=== PATIENT | male | born 1970 | race Asian ===

== ENCOUNTER 2021-04-17 10:19 | Day surgery (SDC) | payer OTHER, SELFPAY ==
[2021-04-17 10:44] VITALS: BMI 25.6
[2021-04-17] MEDS: Lactated Ringers 1,000 ML 100 ML IVCONT (11:13)
--- NOTE | 2021-04-17 11:17 | P.CONAN_ITS ---
HPI - Anesthesia Eval Consult details Narrative: 50 yo male patient for EGD, Colonoscopy [facility] Past Medical History Medical History (Updated 04/17/21 @ 10:37 by Trisha Lopes RN) GERD (gastroesophageal reflux disease) Patient denies significant medical history Family History Family history of problems with anesthesia: No Surgical History History of Problems with Anesthesia: No Social History Social History Patient Tobacco Use Status: Never used Tobacco Use of substances other than those prescribed or required for medical reasons: No Are you DNR?: No Advance Directives: No Advance Directives Information Provided: Yes Recently lost weight without trying: No How much weight loss: 2-13 pounds Eating poorly because of decreased appetite: No Nutrition screen score: 1 Nutrition Risks: No Nutritional Risk Poor oral hygiene: No Meds Allergies Allergy/AdvReac Type Severity Reaction Status Date / Time No Known Allergies Allergy Verified 04/16/21 15:45 Exam Exam Date and Time: April 17, 2021 1117 Height,Weight and Vital Signs: Height 5 ft 6 in Weight 72 kg Vital Signs Temp Pulse Resp BP Pulse Ox 04/17/21 11:30 97.6 F 69 16 99/66 96 Airway Mallampati Class: II TM Dist: >3cm Neck ROM: Full Loose/Missing/Broken Teeth: Yes (1 missing) Heart: RRR Lungs: CTAB Assessment and Plan Assessment Anesthesia Assessment: Anesthesia Plan Discussed and Chart Reviewed Final Anesthetic Review Family History of Problems with Anesthesia: No History of Problems with Anesthesia: No NPO: Yes ASA Class: II Final Preanesthetic Review: No Changes in Pt Med Stat, Meds/Allgs Chart Reviewed, Consent Obtained/Reviewed and Anes Risks/Benef Reviewed Patient Risk: Low Procedure Risk: Low Assessment/Block/Sedation in SS: Assess/Block/Sedation-SS Anesthetic Plan Anesthetic Plan: MAC: Disposition: Standard PACU
[2021-04-17 11:30] VITALS: BP 99/66; PULSE 69; RESP 16; TEMP 36.4; O2SAT 96
--- NOTE | 2021-04-17 11:46 | MHC.SHP ---
Pre-Procedural Eval Section A Date of Service: 04/17/21 The patient is an INPATIENT: No Changes since office visit: No Cold of Flu in the past 2 weeks, No New Medical Problems, No Changes in Medication and No Patient answered all questions The History & Physical has been completed within 30 days and I have reviewed it.: Yes Section B Chief Complaint: reflux,screening Allergies: Allergies Allergy/AdvReac Type Severity Reaction Status Date / Time No Known Allergies Allergy Verified 04/16/21 15:45 Plan I have reviewed the history and physical and performed a pertinent physical examination on my patient. No changes have occurred unless specified.
[2021-04-17 12:34] VITALS: BP 90/60; PULSE 76; RESP 16; TEMP 36.3; O2SAT 98
--- NOTE | 2021-04-17 12:35 | PM.OP ---
Brief Operative Note Date of Service: 04/17/21 Pre-op diagnosis: gerd, screening Post-op diagnosis: same (colono polyps) Procedure: egd,colonoscopy Surgeon: Ramon Mauricio Anesthesia: MAC Was an Manager Professional Development used for this Procedure?: No Estimated blood loss (mL): 2 Pathology: other (see nurses notes) Condition: stable Disposition: PACU
[2021-04-17 12:49] VITALS: BP 106/71; PULSE 72; RESP 17; TEMP 36.3; O2SAT 98
--- NOTE | 2021-04-17 13:07 | OP_ITS ---
SURGEON: Ramon Mauricio MD INDICATIONS: Gastroesophageal reflux disease and colon cancer screening. PREOPERATIVE DIAGNOSIS: POSTOPERATIVE DIAGNOSIS: PROCEDURE PERFORMED: ESTIMATED BLOOD LOSS: COMPLICATIONS: ANESTHESIA: ASSISTANTS: SPECIMENS: PROCEDURES PERFORMED: 1. Upper endoscopy with biopsy. 2. Colonoscopy to the terminal ileum with snare polypectomy. MEDICATIONS: Monitored anesthesia care. DESCRIPTION OF PROCEDURE: History and physical performed. The risks and benefits of the procedure were explained to the patient. Informed consent was obtained. The patient was placed in the left lateral decubitus position. The Olympus video gastroscope was introduced into the esophagus, stomach, and duodenum. Examination was performed and the scope was removed. He was repositioned for colonoscopy. A digital rectal exam was performed and was found to be normal. The Olympus pediatric video colonoscope was introduced into the rectum and advanced to the cecum without difficulty. The cecum was identified by transillumination, palpation, and identification of ileocecal valve. Examination was performed and the scope was removed. He tolerated both procedures well and was taken to recovery area in stable condition. FINDINGS: UPPER ENDOSCOPY: Esophagus: The esophagus was normal. There was no esophagitis. Biopsies were obtained from the EG junction. Stomach: The stomach showed no evidence of masses, ulcers, or polyps. Antral biopsies were obtained to evaluate for H pylori. Duodenum: The bulb and second portion were normal. COLONOSCOPY: The terminal ileum was examined for approximately 30 cm and appeared normal. The visualized colonic mucosa was within normal limits without evidence of masses or ulcers. The quality of the prep was good. Two polyps were identified and removed with a snare, both were less than 10 mm. One was located at 50 cm and one was located at 40 cm. No other polyps were identified. Retroflexed examination showed moderate-sized internal hemorrhoids. IMPRESSION: 1. Gastroesophageal reflux disease. 2. Colon polyps. RECOMMENDATION: Follow up the biopsy results. MD BARBER Colmenares/TEOFILO / [id number]
== END 2021-04-17 13:32 | disposition home or self-care (01) ==
PROVIDERS: PCP Internal Medicine; Visit Provider Internal Medicine Gastroenterology
PROC: (CPT 45385; principal; 2021-04-17 11:20)
DX: Z12.11 Encounter for screening for malignant neoplasm of colon (principal); D12.6 Benign neoplasm of colon, unspecified; K21.9 Gastro-esophageal reflux disease without esophagitis
CPT/HCPCS: 45385; 43239; 88305; 88342

== ENCOUNTER → 2022-12-01 13:33 | Outpatient (BNVA) | payer OTHER, SELFPAY | PROVIDERS: PCP Internal Medicine; Referring Provider Psychiatry & Neurology Neurology; Visit Provider Surgery | DX: Z13.89 Encounter for screening for other disorder (principal) ==

== ENCOUNTER → 2022-12-13 09:46 | Outpatient (BNVA) | payer OTHER, SELFPAY | PROVIDERS: PCP Internal Medicine; Visit Provider Nurse Practitioner Family | DX: N40.1 Benign prostatic hyperplasia with lower urinary tract symptoms (principal) | CPT/HCPCS: 51798 ==

== ENCOUNTER 2022-12-31 08:12 | Day surgery (SDC) | payer OTHER, SELFPAY ==
[2022-12-29 13:29] VITALS: BMI 26.6
--- NOTE | 2022-12-30 09:00 | HO.ANESPROP2 ---
Documented by User: Fransisca Villa NP 12/30/22 09:01 HPI - Anesthesia Eval Consult details Narrative: 52yo M for Left Excision Lipoma Multiple Upper Extremities PMFSH Active Problems Active Problems: All Active Problems (Updated 12/29/22 @ 13:28 by Rosanna Brito RN) Lipoma of arm (Acute) BPH loc w urin obs/LUTS (Acute) Past Medical History Medical History GERD (gastroesophageal reflux disease) Family History Family history of problems with anesthesia: No Surgical History Surgical History H/O colonoscopy History of esophagogastroduodenoscopy (EGD) History of Problems with Anesthesia: No Social History Social History Alcohol intake: never Patient Tobacco Use Status: Never used Tobacco Are you DNR?: No Advance Directives: No Advance Directives Information Provided: Yes Nutrition Risks: No Nutritional Risk Meds Allergies Allergy/AdvReac Type Severity Reaction Status Date / Time No Known Allergies Allergy Verified 12/31/22 08:39 Home Medications Medication Instructions Recorded Confirmed Last Taken Type multivitamin 1 tab PO DAILY 12/01/22 12/31/22 12/30/22 History gabapentin 300 mg capsule mg PO 12/09/22 12/30/22 History tamsulosin 0.4 mg capsule 0.4 mg PO DAILY 12/09/22 12/31/22 12/30/22 History omeprazole 20 mg capsule,delayed 20 mg PO DAILY PRN Heartburn 12/13/22 12/31/22 12/30/22 History release Exam Exam Date and Time: December 30, 2022 0900 Height,Weight and Vital Signs: Height 5 ft 6 in Weight 74.843 kg Assessment and Plan Assessment Anesthesia Assessment: Chart Reviewed Final Anesthetic Review Family History of Problems with Anesthesia: No History of Problems with Anesthesia: No Documented by User: Connie Montoya MD 12/31/22 10:14 [facility] Active Problems Active Problems: All Active Problems (Updated 12/29/22 @ 13:28 by Rosanna Brito, NATALY) Lipoma of arm (Acute) BPH loc w urin obs/LUTS (Acute) neurofibromatosis Past Medical History Medical History GERD (gastroesophageal reflux disease) Surgical History Surgical History H/O colonoscopy History of esophagogastroduodenoscopy (EGD) Social History Social History Alcohol intake: never Patient Tobacco Use Status: Never used Tobacco Are you DNR?: No Advance Directives: No Advance Directives Information Provided: Yes Nutrition Risks: No Nutritional Risk Meds Allergies Allergy/AdvReac Type Severity Reaction Status Date / Time No Known Allergies Allergy Verified 12/31/22 08:39 Home Medications Medication Instructions Recorded Confirmed Last Taken Type multivitamin 1 tab PO DAILY 12/01/22 12/31/22 12/30/22 History gabapentin 300 mg capsule mg PO 12/09/22 12/30/22 History tamsulosin 0.4 mg capsule 0.4 mg PO DAILY 12/09/22 12/31/22 12/30/22 History omeprazole 20 mg capsule,delayed 20 mg PO DAILY PRN Heartburn 12/13/22 12/31/22 12/30/22 History release Exam Airway Mallampati Class: III (small mouth opening ) TM Dist: >3cm Neck ROM: Full Loose/Missing/Broken Teeth: No Heart: RRR Lungs: CTA Assessment and Plan Assessment Anesthesia Assessment: Anesthesia Plan Discussed Final Anesthetic Review NPO: Yes ASA Class: II Final Preanesthetic Review: Meds/Allgs Chart Reviewed, Consent Obtained/Reviewed and Anes Risks/Benef Reviewed Patient Risk: Low Procedure Risk: Low Anesthetic Plan Anesthetic Plan: GA Disposition: Standard PACU
--- NOTE | 2022-12-30 14:25 | MHC.SHP ---
Pre-Procedural Eval Section A Date of Service: 12/30/22 The patient is an INPATIENT: No Changes since office visit: No Cold of Flu in the past 2 weeks, No New Medical Problems, No Changes in Medication and No Patient answered all questions The History & Physical has been completed within 30 days and I have reviewed it.: Yes Section B Chief Complaint: Benign lipomatous neoplasm of skin and subcutaneou Allergies: Allergies Allergy/AdvReac Type Severity Reaction Status Date / Time No Known Allergies Allergy Verified 12/13/22 10:18 Plan I have reviewed the history and physical and performed a pertinent physical examination on my patient. No changes have occurred unless specified. Time Spent With Patient Time: Total time managing care of this patient today ____ minutes.
[2022-12-31] MEDS: Lactated Ringers 1,000 ML 100 ML IVCONT (09:19)
[2022-12-31 09:28] VITALS: BP 111/71; PULSE 72; RESP 18; TEMP 36.6; O2SAT 98
[2022-12-31 12:28] VITALS: BP 107/63; PULSE 75; RESP 16; TEMP 36.2; O2SAT 98
[2022-12-31 12:33] VITALS: BP 104/56; PULSE 72; RESP 14; O2SAT 100
[2022-12-31 12:38] VITALS: BP 106/63; PULSE 88; RESP 16; O2SAT 98
--- NOTE | 2022-12-31 12:42 | W.PM.OPN ---
Operative Note Operative Note Date of Service: 12/31/22 Narrative: Preoperative diagnosis: [] Multiple lipomas left upper extremity Postop diagnosis: [] Same Procedure [] excision multiple lipomas left upper extremity, 15 total Surgeon: [] Javier Software Development Leader: [] Type of Anesthesia: [] General Indication for surgery: [] Patient 15 lipomas with the following dimensions excised; all dimensions are in cm; 1. 3 x 2, 2. 2 x 2 , 3. 3 x 2, 4. 2 x 2 cm , 5. 3 x 2, 6. 1 x 2, 7. 3 x 2, 8. 4 x 3, 9. 2 x 3, 10. 3 x 2, 11. 3 x 3, 12. 4 x 2, 13. 3 x 2, 14. 1 x 1, 15. 2 x 1 Findings: [] Patient brought to operating room, placed on operative table supine position, after adequate level of general anesthesia was induced, the left upper extremity was circumferentially prepped and draped in usual fashion. Over premarked areas of the multiple lipomas, sequentially a longitudinal incision was made over each with uneventfully enucleation of the multiple lipomas with number and size as mentioned above. Specimens were sent to pathology. Each wound was irrigated, secured hemostasis, and closed using interrupted inverted dermal 3-0 Vicryl sutures followed by Steri-Strips and sterile dressings, and a Marah wrap. Each wound was infiltrated 0.5% Marcaine at completion. Sponge, needle, and instrument counts reported correct. Patient tolerated the procedure well and emerged anesthesia stable condition. EBL minimal
[2022-12-31 12:43] VITALS: BP 108/75; PULSE 75; RESP 16; O2SAT 97
[2022-12-31 12:58] VITALS: BP 109/76; PULSE 76; RESP 16; TEMP 36.4; O2SAT 97
[2022-12-31] MEDS: Acetaminophen 325 MG TABLET 650 MG PO (13:00)
[2022-12-31] MEDS: oxyCODONE HCl Immed Release 5 MG TABLET PO (13:03)
== END 2022-12-31 13:40 | disposition home or self-care (01) ==
PROVIDERS: PCP Internal Medicine; Visit Provider Surgery
PROC: (CPT 11401; principal; 2022-12-31 09:30)
DX: D17.22 Benign lipomatous neoplasm of skin and subcutaneous tissue of left arm (principal)
CPT/HCPCS: 11401 ×2; 11402 ×4; 11403 ×7; 11404 ×2; 88304; J0690; J1100; J2250; J2405; J2795; J3010

== ENCOUNTER → 2023-01-07 11:49 | Outpatient (BNVA) | payer OTHER, SELFPAY | PROVIDERS: PCP Internal Medicine; Visit Provider Surgery ==

== ENCOUNTER 2023-02-21 10:01 | Outpatient (REF) | payer OTHER, SELFPAY | END 2023-02-21 10:02 | disposition home or self-care (01) | LOC: HO.US 10:01 | PROVIDERS: PCP Internal Medicine; Visit Provider Nurse Practitioner Family | DX: N40.1 Benign prostatic hyperplasia with lower urinary tract symptoms (principal) | CPT/HCPCS: 76770 ==

== ENCOUNTER 2023-05-16 11:18 | Outpatient (REF) | payer OTHER, SELFPAY ==
[2023-05-16 13:52] LABS: Prostate Specific Antigen 1.29 ng/mL (<0.05-4.0)
== END 2023-05-16 11:19 | disposition home or self-care (01) ==
LOC: HO.10HDL 11:18
PROVIDERS: Visit Provider Nurse Practitioner Family
DX: Z12.5 Encounter for screening for malignant neoplasm of prostate (principal); N40.1 Benign prostatic hyperplasia with lower urinary tract symptoms
CPT/HCPCS: 36415; 84153

== ENCOUNTER 2023-05-18 13:51 | Outpatient (AMB) | payer OTHER, SELFPAY ==
--- NOTE | 2023-05-18 14:04 | A.OFFVIS_ITS ---
Intake Intake Visit Reasons: follow up/US(set) Intake Note: Patient presents today for follow up ultrasound/lab/BPH (imaging 02/21/23) Urology Medications: tamsulosin Blood Thinner: none PVR: 0ml's Electronics Hardware Design Engineer Required: Yes Accompanied by: Daughter Allergies No Known Allergies Allergy (Verified 05/18/23 14:42) Medication List - Last Reconciled 05/18/23 by CRICKET Herron- docusate sodium (Colace) 100 mg PO BID PRN gabapentin mg PO multivitamin 1 tab PO DAILY omeprazole 20 mg PO DAILY PRN oxycodone 5 mg PO Q4H PRN tamsulosin 0.4 mg PO DAILY HPI HPI Comments History of Present Illness Details Ca is a very pleasant 52-year-old male patient of Dr. Powell who was accompanied by his daughter at today's visit. He has a past medical history of GERD. He presents to the office today for a follow up. Of note, patient was seen approximately 4 months ago as a new patient for urinary issues at which time a retroperitoneal ultrasound and PSA were ordered for further assessment evaluation. PSA 05/14--1.3. Right kidney with no calculi or hydronephrosis. Simple exophytic 1.6 x 1.6 x 1.6 cm lateral cysts in the mid kidney. No follow-up imaging of this finding is recommended per the radiology report. Left kidney with no calculi, lesions, and or hydronephrosis. The bladder is well distended and normal. Bilateral ureteral jets are demonstrated. Pre void bladder volume is approximately 380 mL. Postvoid bladder volume is approximately 30 mL. The prostate is enlarged measures approximately 40 mL. When asked patient reports to have stopped Flomax due to his recent lipoma removal surgery. He reports having been on high doses of gabapentin to assist with postop pain and has a history of peptic ulcers and did not want to take multiple medications at one time. He reports having been on Flomax for less than 2 weeks however believes it had been helping with urinary urgency and frequency. However, he continues to report urinary dribbling. Discussed at length importance of male pelvic floor exercises to assist with urinary dribbling. Discussed bladder triggers and irritants. He otherwise denies incontinence, nocturia, hematuria, dysuria, foul smelling urine, flank pain, fever, and or chills. In office urinalysis results reviewed with the patient today. PVR 0 mL. He otherwise offers no concerns or complaints at this time. [facility] Medical History GERD (gastroesophageal reflux disease) Surgical History S/P excision of lipoma (12/31/22) History of esophagogastroduodenoscopy (EGD) H/O colonoscopy Social History Alcohol intake: never Patient Tobacco Use Status: Never used Tobacco Review of Systems Const All systems reviewed & are unremarkable except as noted in HPI and below Reports no additional complaints Eyes Reports no additional complaints ENT Reports no additional complaints Card Reports no additional complaints Resp Reports no additional complaints GI Reports as per HPI Reports as per HPI Musc Reports no additional complaints Neuro Reports no additional complaints Psych Reports no additional complaints Endo Reports no additional complaints Kemar/Lymph Reports no additional complaints Aller/Immun Reports no additional complaints Physical Exam Const General: cooperative, healthy appearing, comfortable, no acute distress, well developed, alert and awake Orientation/consciousness: patient oriented x3 Limitations: no limitations HEENT Head: Yes normal to inspection, Yes normocephalic and Yes atraumatic Ears: hearing grossly normal bilaterally Eyes General: appearance normal, both eyes and all related structures Neck Neck: Yes normal visual inspection and Yes trachea midline Chest Chest palpation & inspection: normal inspection of the chest Resp Effort & Inspection: normal respiratory effort and able to speak in complete sentences Cardio Rate: regular rate GI Inspection: Yes normal to inspection General: Yes no CVA tenderness Back/Spine/Pelvis Back: no CVA tenderness Skin General skin exam: no rashes or lesions noted Neuro General: patient oriented x3 Extrem General: Yes normal to inspection Psych Appearance: grossly normal and well kempt Mental Status: mental status grossly normal Speech and movement: Normal speech and movement present and Clear speech present Affect: normal affect Attitude: cooperative Thought process: Normal thought process present Thought content: Normal thought content present Insight: Good insight present (Psych) Judgement: Good judgement present (Psych) Office Procedures Post Void Residual Post Residual Void Post Void Residual (PVR): 0 [id number] Void Residual by ultrasound Results AMB Urinalysis, Automated UA Leukoctes 0 Romain/uL Last Edit by Leopoldoe Bailey on 05/18/23 14:31 UA Nitrite Negative Last Edit by Brandkirk Avalos on 05/18/23 14:31 UA Urobilinogen 0.2 mg/dL Last Edit by Brandjonee Bailey on 05/18/23 14:31 UA Protein 0 mg/dL Last Edit by Brandjonee Bresouleymane on 05/18/23 14:31 UA pH 6.0 Last Edit by Brandyce Bress on 05/18/23 14:31 UA Blood 0 Jimy/uL Last Edit by Brandyce Bress on 05/18/23 14:31 UA Specific [place] 1.020 Last Edit by Quartzyyce Noknokersouleymane on 05/18/23 14:31 UA Ketone Last Edit by Quartzykirk Avalos on 05/18/23 14:31 UA Bilirubin 0 mg/dL Last Edit by Quartzyjonee Bailey on 05/18/23 14:31 UA Glucose 0 mg/dL Last Edit by Quartzykirk Avalos on 05/18/23 14:31 Results Reviewed Results Reviewed: Laboratory Last Values Urine pH (Auto) 6.0 05/18/23 14:15 Specific [place] (Auto) 1.020 05/18/23 14:15 Urine Protein (Auto) 0 mg/dL 05/18/23 14:15 Glucose (UA)(Auto) 0 mg/dL 05/18/23 14:15 Urine Blood (Auto) 0 Jimy/uL 05/18/23 14:15 Urine Nitrite (Auto) Negative 05/18/23 14:15 Urine Bilirubin (Auto) 0 mg/dL 05/18/23 14:15 Urine Urobilinogen (Auto) 0.2 mg/dL 05/18/23 14:15 Leukocyte Esterase (Auto) 0 Romain/uL 05/18/23 14:15 Ordering Physician: Marva Samson Date of Service: 02/21/23 EXAMINATION: US RETROPERITONEAL COMPLETE (RENAL) FINDINGS: RIGHT KIDNEY: 10.3 x 4.8 x 5.4 cm (SAG x AP x TRV). The kidney is normal in size, contour, and echogenicity. Renal cortical thickness is normal. No renal calculi or hydronephrosis. Simple exophytic 1.6 x 1.6 x 1.6 cm lateral cysts in the mid kidney. No follow-up imaging of this finding is recommended. LEFT KIDNEY: 10.5 x 5.3 x 4.7 cm (SAG x AP x TRV). The kidney is normal in size, contour, and echogenicity. Renal cortical thickness is normal. No calculi or focal parenchymal lesions. No hydronephrosis. BLADDER: Well distended and normal. Bilateral ureteral jets are demonstrated. Prevoid bladder volume is 378 mL. Postvoid bladder volume is 29.2 mL. ADDITIONAL FINDINGS: The prostate is enlarged and measures 39.7 mL IMPRESSION: 1. No significant abnormality of the right kidney. 2. Normal appearance of the left kidney. 3. Small post void residual. 4. Enlarged prostate. Assessment & Plan Assessment & Plan (1) Urinary frequency: Code(s): R35.0 - Frequency of micturition (2) Urinary urgency: Code(s): R39.15 - Urgency of urination (3) Urinary dribbling: Code(s): N39.43 - Post-void dribbling (4) Enlarged prostate: Code(s): N40.0 - Benign prostatic hyperplasia without lower urinary tract symptoms (5) Lower urinary tract symptoms: Code(s): R39.9 - Unspecified symptoms and signs involving the genitourinary system Plan In office urinalysis results reviewed with the patient today; as noted above. PVR 0 mL. Recent PSA results reviewed with the patient is daughter today; as noted above. Recent retroperitoneal ultrasound results reviewed with the patient is daughter today; as noted above. Restart Flomax 0.4 mg daily as discussed and prescribed. Discussed at length importance of male pelvic floor exercises for improvement in urinary dribbling. Discussed bladder triggers/irritants. Follow-up in 6 weeks with PVR; or sooner with any issues, concerns, and or questions. Orders: Orders AMB Post Void Residual by ultrasound Today N40.1 - Benign prostatic hyperplasia with lower urinary tract symptoms AMB Urinalysis Automated Today Z13.9 - Encounter for screening, unspecified Patient Instructions: The patient had an opportunity to ask questions regarding the treatment plan. All questions were answered. Physical exam, labs, and imaging were discussed and reviewed in detail. As well as risks, benefits, and discussion of treatment choices. No major barriers to understanding were identified. The patient expressed understanding and agreement with the above treatment plan. The patient was made aware they should contact our office by phone for worsening of their current condition, the appearance of new symptoms, or with any questions or concerns. Compliance is encouraged with any medications and follow up testing that is ordered. It is a privilege to be allowed the opportunity to participate in? your urological care.? Again, if you have any questions or concerns If you have any questions or concerns please do not hesitate to contact me. The office is [phone]. This note is constructed using voice recognition software. While every effort has been made to ensure accuracy tribunal member errors may have been included. Yours sincerely, DAGO Herron Coding Level of Care Code Est Pt Level 3 (81773) Diagnoses Urinary frequency R35.0 Urinary urgency R39.15 Urinary dribbling N39.43 Enlarged prostate N40.0 Lower urinary tract symptoms R39.9 CPT Codes Post Residual Void - PVR CPT Code: 66391-[id number] Void Residual by ultrasound ([id number])
== END 2023-05-18 14:41 | disposition home or self-care (01) ==
PROVIDERS: PCP Internal Medicine; Visit Provider Nurse Practitioner Family
DX: R35.0 Frequency of micturition (principal); R39.15 Urgency of urination; N39.43 Post-void dribbling; N40.0 Benign prostatic hyperplasia without lower urinary tract symptoms; R39.9 Unspecified symptoms and signs involving the genitourinary system; Z13.9 Encounter for screening, unspecified
CPT/HCPCS: 99213

== ENCOUNTER → 2023-05-18 13:51 | Outpatient (BNVA) | payer OTHER, SELFPAY | PROVIDERS: PCP Internal Medicine; Visit Provider Nurse Practitioner Family | DX: R35.0 Frequency of micturition (principal); R39.15 Urgency of urination; R39.9 Unspecified symptoms and signs involving the genitourinary system; N39.43 Post-void dribbling; N40.0 Benign prostatic hyperplasia without lower urinary tract symptoms | CPT/HCPCS: 51798; 81003; 99212 ==